=== PATIENT | female | born 2000 | race Caucasian/White ===

== ENCOUNTER 2023-02-04 15:21 | Emergency (ER) | payer BC ==
[~2023-02-04] VITALS: Ht 170.2 cm; Wt 68.0 kg
[2023-02-04 16:05] LABS: BASOPHILS % (AUTO) 0.8 % (0.0-2.0); EOSINOPHILS % (AUTO) 0.5 % (0.0-7.0); HEMATOCRIT 38.4 % (31.2-41.9); HEMOGLOBIN 12.8 g/dL (10.9-14.3); LYMPHOCYTES # (AUTO) 3.2 K/uL (0.8-4.8); LYMPHOCYTES % (AUTO) 54.2 % (20.5-51.5); MEAN CORPUSCULAR HEMOGLOBIN 34.2 uug (24.7-32.8); MEAN CORPUSCULAR HGB CONC 33 g/dL (32.3-35.6); MEAN CORPUSCULAR VOLUME 102.2 fL (75.5-95.3); MONOCYTES # (AUTO) 0.4 K/uL (0.1-1.30); MONOCYTES % (AUTO) 6.4 % (0.0-11.0); NEUTROPHILS # (AUTO) 2.2 K/uL (1.8-8.9); NEUTROPHILS % (AUTO) 38.1 % (38.5-71.5); PLATELET COUNT (AUTO) 237 K/uL (179-408); RED BLOOD CELL COUNT(AUTO) 3.76 MIL/uL (3.63-4.92); RED CELL DISTRIBUTION WIDTH 13.1 % (12.3-17.7); WHITE BLOOD COUNT (AUTO) 5.9 K/uL (3.8-11.8)
[2023-02-04 16:13] LABS: DIFFERENTIAL COMMENT 1
[2023-02-04 16:14] LABS: *BILIRUBIN,URIN NEGATIVE (NEGATIVE); *BLOOD, URINE NEGATIVE (NEGATIVE); *CLARITY,URINE CLEAR (CLEAR); *COLOR,URINE YELLOW (YELLOW); *KETONES,URINE NEGATIVE (NEGATIVE); *PROTEIN,URINE NEGATIVE (NEGATIVE); *UROBILINOGEN,URINE 0.2 E.U./dl (NORMAL); LEUKOCYTE ESTERASE ,URINE TRACE (NEGATIVE); NITRITE, URINE NEGATIVE (NEGATIVE); UGLUCOSE NEGATIVE (NEGATIVE)
[2023-02-04 16:19] LABS: CALCIUM 9.9 mg/dL (8.5-10.1); CREATININE 0.7 mg/dL (0.6-1.3); POTASSIUM 3.9 mmol/L (3.5-5.1)
[2023-02-04 16:26] LABS: ALBUMIN 4.2 g/dL (3.4-5.0); BILIRUBIN,DIRECT 0.1 mg/dL (0.0-0.2); BILIRUBIN,TOTAL 0.6 mg/dL (0.2-1.0); TOTAL PROTEIN, SERUM 7.8 g/dL (6.4-8.2)
[2023-02-04] MEDS ORDERED: FAMOTIDINE. 20 MG/2 ML VIAL IV ONE ×2 (16:28→16:30)
[2023-02-04 16:43] LABS: BACTERIA,URINE FEW /HPF (NONE SEEN); RBC,URINE 0-3 /HPF (0-3); SQUAMOUS EPITHELIAL CELL,UR MODERATE /HPF (NONE SEEN)
[2023-02-04 16:52] LABS: *URINE HCG, QUAL NEGATIVE (NEGATIVE)
[2023-02-04 17:55] VITALS: BP 103/60; TEMP 97.9; O2SAT 100
== END 2023-02-04 17:56 | disposition home or self-care (01) ==
LOC: ER 15:21
DX: R10.13 Epigastric pain (principal); R94.31 Abnormal electrocardiogram [ECG] [EKG]
CPT/HCPCS: 36415; 83690; 84484; 84703; 85025; 93005; A4663; J3490